=== PATIENT | male | born 1975 | race Caucasian/White ===

== ENCOUNTER → 2023-01-13 13:05 | Outpatient (BNVA) | payer BC, SELFPAY | PROVIDERS: Family Provider Family Medicine; PCP Family Medicine; Visit Provider Family Medicine | DX: Z00.00 Encounter for general adult medical examination without abnormal findings (principal); R68.82 Decreased libido; E79.0 Hyperuricemia without signs of inflammatory arthritis and tophaceous disease | CPT/HCPCS: 80053; 80061; 82040; 84270; 84403; 84550 ==

== ENCOUNTER → 2023-01-27 08:18 | Outpatient (BNVA) | payer BC, SELFPAY | PROVIDERS: Family Provider Family Medicine; PCP Family Medicine; Visit Provider Family Medicine | DX: Z00.00 Encounter for general adult medical examination without abnormal findings (principal); R68.82 Decreased libido | CPT/HCPCS: 82040; 84270; 84403 ==

== ENCOUNTER → 2023-02-13 10:17 | Outpatient (BNVA) | payer BC, SELFPAY | PROVIDERS: Family Provider Family Medicine; PCP Family Medicine; Visit Provider Family Medicine | DX: R68.82 Decreased libido (principal) | CPT/HCPCS: 82040; 84270; 84403 ==

== ENCOUNTER → 2024-01-22 08:43 | Outpatient (BNVA) | payer BC, SELFPAY | PROVIDERS: Family Provider Family Medicine; PCP Family Medicine; Visit Provider Family Medicine | DX: Z13.6 Encounter for screening for cardiovascular disorders (principal); E79.0 Hyperuricemia without signs of inflammatory arthritis and tophaceous disease; Z00.00 Encounter for general adult medical examination without abnormal findings; M19.90 Unspecified osteoarthritis, unspecified site | CPT/HCPCS: 80053; 80061; 84550; 85025 ==